=== PATIENT | female | born 1975 | race African-American/Black ===

== ENCOUNTER 2024-06-13 19:01 | Emergency (ER) | payer SELFPAY ==
[~2024-06-13] VITALS: Ht 167.6 cm; Wt 70.0 kg
[2024-06-13 19:04] VITALS: O2SAT 100
[2024-06-13 19:49] VITALS: BP 126/76; PULSE 63; RESP 15; TEMP 98.4
[2024-06-13] MEDS: HYDRALAZINE 20MG/ML VIAL IV ONE (19:52)
[2024-06-13] MEDS: MECLIZINE 25MG TABLET PO ONE (20:15)
[2024-06-13 20:56] LABS: BASOPHILS % 0.3 % (0.0-2.0); HEMOGLOBIN. 8.2 g/dL (12.0-16.0); LYMPHOCYTES % 12.5 % (20.0-50.0); MEAN CORPUSCULAR HEMOGLOBIN 19.2 pg (28.0-32.0); MEAN CORPUSCULAR HGB CONC 29.3 g/dL (31.0-37.0); MEAN CORPUSCULAR VOLUME 65.6 fL (81.0-99.0); MEAN PLATELET VOLUME 8.1 fl (7.4-10.4); MONOCYTES % 6.8 % (2.0-8.0); NEUTROPHILS % 79.4 % (40.0-76.0); PLATELET 272 x1000/uL (130-400); RED BLOOD CELL COUNT 4.26 mill/uL (4.2-5.4); RED CELL DISTRIBUTION WIDTH 19.2 % (11.6-14.6); WHITE BLOOD COUNT 10.9 x1000/uL (4.5-11.0)
[2024-06-13 20:58] LABS: ADD RBC MORPHOLOGY YES; DIFFERENTIAL COMMENT 1
[2024-06-13 21:03] LABS: CHLORIDE 100 mEq/L (98-107); SODIUM 136 mEq/L (136-145)
[2024-06-13 21:04] LABS: CALCIUM 9.6 mg/dL (8.7-10.4); CARBON DIOXIDE 29 mEq/L (21-32)
[2024-06-13 21:06] LABS: HCG SCREEN NEGATIVE
[2024-06-13 21:09] LABS: CREATININE 0.9 mg/dL (0.6-1.0); GLUCOSE 94 mg/dL (70-105); UREA NITROGEN BLOOD 14 mg/dL (9-23)
[2024-06-13 21:10] LABS: TROPONIN I HIGH SENSITIVITY 24 ng/L (3.0-34)
[2024-06-13 21:13] LABS: INR 1.5; PARTIAL THROMBOPLASTIN TIME 26.6 sec (23.4-31.0); PROTHROMBIN TIME 16.1 sec (9.6-11.0)
[2024-06-13] MEDS ORDERED: MECL-299 MT (21:23)
[2024-06-13] MEDS: POTASSIUM CHLORIDE 20MEQ TABLET SR PO ONE (21:57)
[2024-06-13 22:44] LABS: ANISOCYTOSIS 1+; HYPOCHROMASIA 2+; MICROCYTOSIS 2+
[2024-06-13 22:45] LABS: PLATELET ESTIMATE NORMAL; TARGET CELLS 1+
[2024-06-13] MEDS ORDERED: HYDRALAZINE 20MG/ML VIAL IV NR (23:00)
== END 2024-06-13 22:30 | disposition home or self-care (01) ==
LOC: ER 19:01
DX: R42 Dizziness and giddiness (principal); E87.6 Hypokalemia; I48.91 Unspecified atrial fibrillation
CPT/HCPCS: 99285; 70450; 71045; 80048; 84703; 83880; 85025; 85610; 85730; 84484; 36415; 93005; J8597